=== PATIENT | female | born 2000 | race Caucasian/White ===

== ENCOUNTER 2021-09-19 20:16 | Emergency (ER) | payer BC, SELFPAY ==
[2021-09-19 20:30] VITALS: BP 117/59; PULSE 135; RESP 16; TEMP 37.6; O2SAT 98; BMI 23.9
--- NOTE | 2021-09-19 20:41 | CT_ITS ---
PROCEDURE INFORMATION: Exam: CT Abdomen And Pelvis With Contrast Exam date and time: 09/19/2021 8:41 PM Age: 21 years old Clinical indication: Abdominal pain; Patient HX: Rlq pain; Additional info: Abd pain TECHNIQUE: Imaging protocol: Computed tomography of the abdomen and pelvis with contrast. Total images: 283 Radiation optimization: All CT scans at this facility use at least one of these dose optimization techniques: automated exposure control; mA and/or kV adjustment per patient size (includes targeted exams where dose is matched to clinical indication); or iterative reconstruction. Contrast material: ISOVUE; Contrast volume: 75 ml; Contrast route: IV; COMPARISON: No relevant prior studies available. FINDINGS: Lungs: Visualized lung bases are clear. Heart: Heart size normal. Mediastinal space: The visualized distal esophagus is largely contracted without gross abnormality. Liver: Normal contour. No mass lesions. No intrahepatic biliary ductal dilatation. Gallbladder and bile ducts: Normal. No calcified stones. No ductal dilation. Pancreas: Normal. No inflammatory changes or ductal dilation. Spleen: Normal. No splenomegaly. Adrenal glands: Normal. No adrenal mass. Kidneys and ureters: No acute abnormalities. No hydronephrosis or hydroureter. No urinary tract stones are identified. Stomach and bowel: The stomach is unremarkable. Mildly excessive fluid content in the distal small bowel and proximal colon with slightly excessive bowel wall enhancement, consistent with diarrheal state and mild enterocolitis. No small bowel dilatation or transition point suggestive of bowel obstruction was identified. No evidence of perforation or abscess. Appendix: The appendix is normal in caliber and demonstrates no evidence of appendicitis. Intraperitoneal space: No free fluid or air. Vasculature: No acute process. No abdominal aortic aneurysm. Lymph nodes: No adenopathy. Urinary bladder: The urinary bladder is largely contracted without gross abnormality. Reproductive: Unremarkable as visualized. Bones/joints: No acute osseous abnormalities. Soft tissues: Unremarkable. IMPRESSION: There is evidence of mild enterocolitis and diarrheal state. No evidence of bowel obstruction, perforation, or abscess. Normal appendix.
[2021-09-19 20:52] LABS: Microscopic, Urine URINE MICROSCOPIC (MICROSCOPIC)
[2021-09-19 20:56] LABS: Basophils # 0.1 K/mm3 (0-0.2); Basophils % 1.1 % (0.1-2.0); Eosinophils # 0.1 K/mm3 (0.0-0.4); Eosinophils % 0.6 % (0.1-12.0); Hematocrit 47.2 % (37.0-47.0); Hemoglobin 15.6 g/dL (12.2-16.2); Lymphocytes # 0.5 K/mm3 (0.7-4.5); Lymphocytes % 4.6 % (10-50); Mean Corpuscular HGB Conc 33.1 g/dL (31.8-35.4); Mean Corpuscular Hemoglobin 31.9 pg (27.0-31.2); Mean Corpuscular Volume 96.4 fl (81-99); Monocytes # 0.4 K/mm3 (0.1-1.0); Monocytes % 4.3 % (1.7-9.3); Neutrophils # 9.1 K/mm3 (1.8-7.8); Neutrophils % 89.4 % (37.0-80.0); Platelet Count 304 K/mm3 (142-424); Red Cell Distribution Width 12.5 % (11.5-17.5); White Blood Count 10.2 K/mm3 (4.8-10.8)
[2021-09-19 20:58] LABS: Appearance,Urine SL CLOUDY (Clear); Bilirubin,Urine Negative (Negative); Blood, Urine Negative (Negative); Color,Urine YELLOW (Yellow); Glucose,Urine (UA) Negative (Negative); Ketones,Urine 2+ (Negative); Leukocyte Esterase,Urine Negative (Negative); MANUAL DIFFERENTIAL MANUAL DIFFERENTIAL (MANUAL DIFF); Nitrate,Urine Negative (Negative); Protein,Urine Negative (Negative); Urobilinogen,Urine 0.2 EU/dl (0.2)
[2021-09-19 21:01] LABS: Urine Pregnancy, HCG Qual. Negative (Negative)
[2021-09-19 21:10] LABS: Bacteria,Urine Trace /lpf; RBC,Urine Occasional #/hpf (0-3)
[2021-09-19 21:18] LABS: Alanine Aminotransferase 26 U/L (12-78); Albumin Level 4.8 g/dl (3.5-5.0); Albumin/Globulin Ratio 1.5 (1.1-1.8); Alkaline Phosphatase 69 U/L (38-126); Amylase 63 U/L (30-110); Anion Gap 15.9 mEq/L (5-15); Aspartate Amino Transferase 30 U/L (14-36); Bilirubin,Total 0.8 mg/dl (0.2-1.3); Blood Urea Nitrogen 20 mg/dl (7-17); Calcium 9.4 mg/dl (8.4-10.2); Carbon Dioxide 22 mmol/L (22.0-30.0); Chloride 103 mmol/L (98-107); Creatinine Clearance Estimated 121 mL/min (50-200); Estimated Glomerular Filt Rate 104 ml/min (>60); GFR (African American) 125 ML/MIN (>60); Globulin 3.2 g/dL (1.3-3.2); Glucose 105 mg/dl (74-100); Lipase 58 U/L (23-300); Potassium 3.9 mmoL/L (3.5-5.1); Sodium 137 mmol/L (136-145)
[2021-09-19 21:35] LABS: Erythrocyte Sedimentation Rate 11 mm/hr (0-20)
[2021-09-19 21:38] LABS: Lymphocytes % 6 % (10-50); Monocytes % 5 % (2-9); Neutrophils % 89 % (42-76); Total Cells Counted 100
[2021-09-19 21:39] LABS: Platelet Estimate Normal
--- NOTE | 2021-09-19 21:46 | [facility].EDNVD ---
ED Disposition Clinical Impression: Abdominal pain Qualifiers: Abdominal location: right upper quadrant Qualified Code(s): R10.11 - Right upper quadrant pain Disposition: Home, Self-Care Condition on Discharge: Good Instructions: DI for Acute Abdominal Pain Additional Instructions: fluids and see pcp for follow up Prescriptions: Ondansetron [Zofran 4mg ODT] 4 mg PO TIDP PRN #21 tab PRN Reason: Nausea And Vomiting Transmission Status: Pending to [facility]/pharmacy #[id number] Referrals: Lilly Munson [Primary Care Provider] - - Critical Care Critical Care Time: No Attestation: On 09/19/21, the high probability of a clinically significant, sudden or life threatening deterioration of the following system(s) required my full and direct attention, intervention and personal management. The time I documented below is in addition to time spent performing reported procedures but includes the following listed in this critical care notation. Medical Decision Making - Medical Records Medical records reviewed: Yes: I reviewed the patient's medical records. - Kwan Inquiry Pt receiving controlled substance: No Vital Signs: 09/19/21 20:30 Temperature 99.7 F H Temperature Source Oral Pulse Rate [Left] 135 H Respiratory Rate 16 Blood Pressure [Right Arm] 117/59 L Blood Pressure Mean [Right Arm] 78 02 Sat by Pulse Oximetry 98 Oxygen Delivery Method Room Air - Lab Data Lab results reviewed: Yes: I reviewed the patient's lab results. Lab Results 09/19/21 20:25: WBC 10.2, RBC 4.90, Hgb 15.6, Hct 47.2 H, MCV 96.4, MCH 31.9 H, MCHC 33.1, RDW 12.5, Plt Count 304, MPV 8.0, Neut % (Auto) 89.4 H, Lymph % (Auto) 4.6 L, [place] % (Auto) 4.3, Eos % (Auto) 0.6, Baso % (Auto) 1.1, Neut # (Auto) 9.1 H, Lymph # (Auto) 0.5 L, Logan # (Auto) 0.4, Eos # (Auto) 0.1, Baso # (Auto) 0.1, Total Counted 100, Neutrophils % (Manual) 89 H, Lymphocytes % (Manual) 6 L, Monocytes % (Manual) 5, Platelet Estimate Normal, ESR 11 09/19/21 20:25: Sodium 137, Potassium 3.9, Chloride 103, Carbon Dioxide 22, Anion Gap 15.9 H, BUN 20 H, Creatinine 0.70, Estimated Creat Clear 121, Estimated GFR 104, Est GFR ( Amer) 125, Glucose 105 H, Calcium 9.4, Total Bilirubin 0.8, AST 30, ALT 26, Alkaline Phosphatase 69, Total Protein 8.0, Albumin 4.8, Globulin 3.2, Albumin/Globulin Ratio 1.5, Amylase 63, Lipase 58 09/19/21 20:25: Urine Color Yellow, Urine Appearance Sl cloudy, Urine pH 6.0, Ur Specific [place] 1.020, Urine Protein Negative, Urine Glucose (UA) Negative, Urine Ketones 2+, Urine Blood Negative, Urine Nitrate Negative, Urine Bilirubin Negative, Urine Urobilinogen 0.2, Ur Leukocyte Esterase Negative, Urine RBC Occasional, Urine WBC 5-10, Ur Squamous Epith Cells 10-20, Urine Bacteria Trace 09/19/21 20:25: Urine HCG, Qual Negative Result diagrams: 09/19/21 20:25 09/19/21 20:25 Orders (Tests/Meds): ED MEDICATIONS Generic Name Dose Route Start Last Admin Trade Name Freq PRN Reason Stop Dose Admin Sodium Chloride 1,000 mls @ 999 mls/hr 09/19/21 20:45 09/19/21 21:50 Sod Chlor 0.9% 1000ml Bag IV 09/19/21 21:45 999 mls/hr .Q1H1M MERLY Administration Sodium Chloride 1,000 mls @ 999 mls/hr 09/19/21 22:30 09/19/21 22:42 Sod Chlor 0.9% 1000ml Bag IV 09/19/21 23:30 999 mls/hr .Q1H1M MERLY Administration Discontinued Medications Generic Name Dose Route Start Last Admin Trade Name Freq PRN Reason Stop Dose Admin Iopamidol 75 ml 09/19/21 21:15 09/19/21 21:16 Iopamidol-370 (76%);100ml Bottle IV 09/19/21 21:16 75 ml ONCE ONE Administration Ketorolac Tromethamine 30 mg 09/19/21 20:40 09/19/21 21:50 Ketorolac 30mg/Ml Vial IV 09/19/21 20:41 30 mg ONCE ONE Administration Morphine Sulfate 4 mg 09/19/21 23:03 09/19/21 23:09 Morphine 4mg/Ml Syringe IV 09/19/21 23:04 4 mg ONCE ONE Administration Ondansetron HCl 4 mg 09/19/21 20:40 09/19/21 21:50 Ondansetron 4mg/2ml Vial IV 09/19/21 20:41 4 mg ONCE ONE Adm
[2021-09-20 01:11] VITALS: BP 120/76; PULSE 97; RESP 16; TEMP 37.1; O2SAT 98
== END 2021-09-20 01:13 | disposition home or self-care (01) ==
PROVIDERS: Emergency Provider Emergency Medicine; PCP Pediatrics
DX: R10.11 Right upper quadrant pain (principal); R11.10 Vomiting, unspecified; R50.9 Fever, unspecified
CPT/HCPCS: 74177; 80053; 81001; 81025; 82150; 83690; 85007; 85025; 85651; 87040; 96365; 96375; 99283; J2405; Q9967